=== PATIENT | female | born 1955 | race African-American/Black ===

== ENCOUNTER 2025-10-06 06:49 | Emergency (ER) | payer BC, MEDICAID ==
[~2025-10-06] VITALS: Ht 167.6 cm; Wt 82.0 kg
[2025-10-06 07:01] VITALS: O2SAT 98
[2025-10-06 09:24] VITALS: BP 199/67; PULSE 60; RESP 15; TEMP 36.8; O2SAT 99
== END 2025-10-06 10:01 | disposition home or self-care (01) ==
LOC: ER 06:49
DX: L40.9 Psoriasis, unspecified (principal); I10 Essential (primary) hypertension; E11.9 Type 2 diabetes mellitus without complications; E78.00 Pure hypercholesterolemia, unspecified
CPT/HCPCS: 99282